=== PATIENT | female | born 1930 | race Caucasian/White ===

== ENCOUNTER → 2016-09-30 | Outpatient (CLI) | payer MEDICARE ==
--- NOTE | 2016-10-01 10:38 | MM ---
Reason for exam: screening (asymptomatic). Last mammogram was performed 1 year and 4 months ago. History: Patient is postmenopausal. Physical Findings: A clinical breast exam by your physician is recommended on an annual basis and results should be correlated with mammographic findings. MG 3D Screening Mammo W/Cad Bilateral CC and MLO view(s) were taken. Prior study comparison: June 06, 2015, bilateral MG 3d screening mammo w/cad. September 14, 2013, bilateral digital screening mammo w/CAD. August 14, 2012, bilateral digital screening mammo w/CAD. There are scattered fibroglandular densities. Finding: There are typically benign vascular, round, linear calcifications in both breasts. There is no discrete abnormality. ASSESSMENT: Benign, BI-RAD 2 RECOMMENDATION: Routine screening mammogram of both breasts in 1 year.
== END | disposition home or self-care (01) ==
LOC: RADMAMWWP 09:45
PROVIDERS: ATTEND Internal Medicine
DX: Z12.31 Encounter for screening mammogram for malignant neoplasm of breast (principal)
CPT/HCPCS: 77063; G0202

== ENCOUNTER → 2017-01-30 | Outpatient (CLI) | payer MEDICARE ==
--- NOTE | 2017-01-30 14:33 | XR ---
EXAMINATION TYPE: XR chest 2V DATE OF EXAM: 01/30/2017 COMPARISON: 09/10/2015 HISTORY: Shortness of breath TECHNIQUE: Frontal and lateral views of the chest are obtained. FINDINGS: Chronic reticular bibasilar opacities are seen suggesting chronic interstitial lung diseas e. This is superimposed on a background of pulmonary emphysema as there is hyperinflation and taperin g of the pulmonary vasculature with biapical lucency. Partial visualization of cervical fusion device . Heart remains enlarged. No evidence of pleural effusion. Degenerative changes of the glenohumeral j oint and thoracic spine are noted. IMPRESSION: Bibasilar reticular opacities, suggesting underlying interstitial lung disease superimpo sed upon pulmonary emphysema.
--- NOTE | 2017-01-31 09:31 | ECHOF ---
Referral Reason:R06.02 Shortness of Breath MEASUREMENTS -------- HEIGHT: 165.1 cm WEIGHT: 77.1 kg BP: 137/61 IVSd: 1.0 cm (0.6 - 1.1) LVIDd: 3.5 cm (3.9 - 5.3) LVPWd: 0.9 cm (0.6 - 1.1) IVSs: 1.6 cm LVIDs: 2.0 cm LVPWs: 1.5 cm Ao Diam: 3.3 cm (2.0 - 3.7) AV Cusp: 1.7 cm (1.5 - 2.6) LA Diam: 3.1 cm (2.7 - 3.8) MV EXCURSION: 13.189 mm (> 18.000) MV EF SLOPE: 54 mm/s (70 - 150) EPSS: 1.0 cm MV E Murali: 0.67 m/s MV DecT: 199 ms MV A Murali: 0.81 m/s MV E/A Ratio: 0.83 RAP: 5.00 mmHg RVSP: 23.95 mmHg FINDINGS -------- Sinus rhythm. This was a technically good study. Left ventricular wall thickness is normal. Overall left ventricular systolic function is normal with, an EF between 55 - 60 %. The right ventricle is normal in size and function. The left atrium is normal in size. The right atrium is normal in size. The aortic valve is trileaflet, and appears structurally normal. No aortic stenosis or regurgitation. There is trace mitral regurgitation. Mild tricuspid regurgitation present. The right ventricular systolic pressure, as measured by Doppler, is 23.95mmHg. Pulmonic valve appears structurally normal. The aortic root size is normal. There is a trivial pericardial effusion present. CONCLUSIONS -------- 1. Sinus rhythm. 2. Mild tricuspid regurgitation present. 3. The right ventricular systolic pressure, as measured by Doppler, is 23.95mmHg. 4. Pulmonic valve appears structurally normal. 5. The aortic root size is normal. 6. There is a trivial pericardial effusion present. 7. This was a technically good study. 8. Left ventricular wall thickness is normal. 9. Overall left ventricular systolic function is normal with, an EF between 55 - 60 %. 10. The right ventricle is normal in size and function. 11. The left atrium is normal in size. 12. The right atrium is normal in size. 13. The aortic valve is trileaflet, and appears structurally normal. No aortic stenosis or regurgitation. 14. There is trace mitral regurgitation. PRODUCTION LEADER: Rahel Chisholm RDCS
== END | disposition home or self-care (01) ==
LOC: RADECHMAIN 13:36
PROVIDERS: ATTEND Internal Medicine
DX: I07.1 Rheumatic tricuspid insufficiency (principal); I31.3 Pericardial effusion (noninflammatory)
CPT/HCPCS: 71020; 93306

== ENCOUNTER → 2017-02-13 | Outpatient (CLI) | payer MEDICARE ==
[2017-02-13 16:12] LABS: Basophils # (A) 0.1 k/uL (0-0.2); Basophils % (A) 1 %; CHCM 33.7; Eosinophils # (A) 0.4 k/uL (0-0.7); Eosinophils % (A) 5 %; HCT 42.1 % (34.0-46.0); HDW 2.58; HGB 13.6 gm/dL (11.4-16.0); Luc # (Auto) 0.25; Luc % (Auto) 3; Lymphocytes # (A) 1.4 k/uL (1.0-4.8); Lymphocytes % (A) 16 %; MCH 28.9 pg (25.0-35.0); MCHC 32.4 g/dL (31.0-37.0); MCV 89.3 fL (80.0-100.0); Mean Platelet Volume 7.2; Monocytes # (A) 0.5 k/uL (0-1.0); Monocytes % (A) 6 %; Neutrophils # (A) 6.3 k/uL (1.3-7.7); Neutrophils % (A) 70 %; RBC 4.71 m/uL (3.80-5.40); RDW 13.5 % (11.5-15.5); WBC (Perox) 9.05
[2017-02-13 16:20] LABS: ALT 25 U/L (9-52); AST 24 U/L (14-36); Alkaline Phosphatase 86 U/L (38-126); Anion Gap 7 mmol/L; Blood Urea Nitrogen 11 mg/dL (7-17); Calcium 9.4 mg/dL (8.4-10.2); Carbon Dioxide 26 mmol/L (22-30); Chloride 106 mmol/L (98-107); Glucose 90 mg/dL (74-99); Non-African American GFR(MDRD) >60 (>60 ml/min/1.73 sqM); Potassium 4.1 mmol/L (3.5-5.1); Sodium 139 mmol/L (137-145); Total Bilirubin 0.4 mg/dL (0.2-1.3); Total Protein 6.4 g/dL (6.3-8.2)
[2017-02-13 16:23] LABS: Rheumatoid Factor, Qnt <9 IU/mL (<12)
[2017-02-13 19:03] LABS: Erythrocyte Sedimentation Rate 17 mm/hr (0-20)
[2017-02-14 01:03] LABS: ANA w/Reflex to Titer POSITIVE (NEGATIVE)
[2017-02-14 02:59] LABS: Alternaria alternata IgE <0.10 kU/L; Aspergillus fumagatus IgE <0.10 kU/L; Cat Epith & Dander IgE 0.55 kU/L; Cladosporian herbarum IgE <0.10 kU/L; Dermato. farinae IgE <0.10 kU/L; Maple (Box Elder) IgE <0.10 kU/L; Orchard Grs(Cocksfoot) IgE <0.10 kU/L; Ragweed,Common IgE <0.10 kU/L
== END | disposition home or self-care (01) ==
LOC: LABWHC1 15:43
PROVIDERS: ATTEND Internal Medicine Critical Care Medicine
DX: J84.10 Pulmonary fibrosis, unspecified (principal); J30.9 Allergic rhinitis, unspecified
CPT/HCPCS: 36415; 80053; 82785; 85025; 85652; 86003; 86038; 86039; 86431

== ENCOUNTER → 2017-02-21 | Outpatient (CLI) | payer MEDICARE ==
--- NOTE | 2017-02-21 12:28 | CT ---
EXAMINATION TYPE: CT chest wo con DATE OF EXAM: 02/21/2017 COMPARISON: NONE HISTORY: Pulmonary Fibrosis CT DLP: 278.4 mGycm. Automated Exposure Control for Dose Reduction was Utilized. TECHNIQUE: CT scan of the thorax is performed without IV contrast. FINDINGS: LUNGS: The lungs are grossly clear, there is no concerning parenchymal mass or nodule identified. T here is no pleural effusion or pneumothorax seen. The tracheobronchial tree is patent. The heart is enlarged. There is a 1 cm pathologic noted in the mediastinum. Atherosclerotic change ao rta and coronary artery calcification seen. Hypertrophic and degenerative changes spine. Small hiatal hernia. Previous gallbladder surgery noted and small hypodensity within the right lobe the liver is too small to characterize. Shotty adenopathy in the axilla. Extensive atherosclerotic change of the aorta. 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 There appears to be a c ommon origin to the right and left common carotid artery. Coronary artery calcification noted. There is bilateral areas of subsegmental ill-defined attenuation in the on the basis of pneumonitis or early infiltrate. Apical pleural thickening noted. The heart i s enlarged. Changes of basilar bronchiectasis noted with paraseptal emphysema and changes suggestive of chronic interstitial pulmonary lung disease such as fibrosis. Incidental note made of a left thyroid nodule. Nonspecific nodularity adrenal glands. IMPRESSION: 1. Correlate for COPD with chronic interstitial pulmonary fibrosis and chronic bronchiectasis. 2. Bilateral ill-defined areas of infiltrate may been the basis of an alveolitis or pneumonitis corre late clinically. 3. Pathologic mediastinal adenopathy measuring short axis of 1 cm. 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 Nonspecific nodularity adrenal glands 2 small to characterize.
== END | disposition home or self-care (01) ==
LOC: RADCTMAIN 11:34
PROVIDERS: ATTEND Internal Medicine Critical Care Medicine
DX: J84.10 Pulmonary fibrosis, unspecified (principal); R59.0 Localized enlarged lymph nodes; J47.9 Bronchiectasis, uncomplicated; Z88.1 Allergy status to other antibiotic agents; Z88.6 Allergy status to analgesic agent; Z88.8 Allergy status to other drugs, medicaments and biological substances
CPT/HCPCS: 71250

== ENCOUNTER → 2017-07-11 | Outpatient (CLI) | payer MEDICARE ==
--- NOTE | 2017-07-11 15:12 | XR ---
EXAMINATION TYPE: XR hand complete bilateral DATE OF EXAM: 07/11/2017 COMPARISON: NONE HISTORY: Pain worsening over 6 months especially at the knuckles TECHNIQUE: Bilateral hands are examined in 3 projections each. FINDINGS: Structures are osteoporotic. There is loss of the proximal distal interphalangeal joint spa rhonda. There is narrowing of the metacarpal phalangeal joint spaces. Note is made of degenerative munoz es through the metacarpal region. There is some early erosion of the distal interphalangeal joint spaces with early pencil in cup appea aleida. Clinical correlation is recommended for psoriatic arthritis. Some mild diffuse soft tissue swe lling may be present. Note is made of an old right ulnar styloid fracture. IMPRESSION: 1. Advanced degenerative changes of the proximal distal interphalangeal joint spaces with additional degenerative changes of of metacarpal phalangeal joint and carpal region joint spaces. Findings can be compatible with osteoarthritic degenerative change. Changes from psoriatic arthritis should also b e considered. 2. Osteoporosis.
== END | disposition home or self-care (01) ==
LOC: RADXRMAIN 13:39
PROVIDERS: ATTEND Internal Medicine
DX: M81.0 Age-related osteoporosis without current pathological fracture (principal)